=== PATIENT | male | born 1950 | race Caucasian/White ===

== ENCOUNTER 2023-12-24 11:06 | Day surgery (SDC) | payer OTHER ==
[2023-12-23 12:33] LABS: Absolute Basophils 0.1 K/uL (0-0.5); Absolute Eosinophils 0.6 K/uL (0-0.5); Absolute Lymphocytes (CBC) 3.1 K/uL (0.7-4.9); Absolute Monocytes 1.2 K/uL (0.1-1.3); Absolute Neutrophil 5.1 K/uL (1.8-8.0); Basophils % 1.2 % (0-1.3); Eosinophils % 5.6 % (0-4.4); Hematocrit 46.2 % (39.6-49.0); Hemoglobin 15.6 g/dL (13.6-17.9); Lymphocytes % 30.9 % (15.3-44.8); MCH 30.5 pg (27.0-35.0); MCHC 33.7 g/dL (32.0-36.0); MCV 90.5 fL (80-100); MPV 8.2 fL (7.6-11.3); Monocytes % 12.2 % (3.3-12.3); Neutrophils % 50.1 % (41.7-73.7); Platelets 271 thou/uL (152-406); RBC Red Blood Cell Count 5.11 M/uL (4.33-5.43); Red Cell Distribution Width 13.5 % (12.1-15.2)
[2023-12-23 12:48] LABS: Anion Gap 7.8 mEq/L (5.0-15.0); Potassium 3.8 mEq/L (3.5-5.1)
[2023-12-23 12:53] LABS: PTT, Activated Partial Thromb 40.8 SECONDS (24.3-36.9); Protime INR 1.07
[2023-12-24] MEDS: NA CHLORIDE 0.9% 500 ML ONE (11:27)
[2023-12-24] MEDS ORDERED: LIDOCAINE 1% 20 ML MDV ONE (12:04)
[2023-12-24] MEDS ORDERED: HEPA 1000U/500MLS 2,000 UNIT/1,000 ML BAG IV ONE (12:04)
[2023-12-24] MEDS ORDERED: HEPARIN 10,000 UNIT/10 ML VIAL IV ONE (12:04)
[2023-12-24] MEDS ORDERED: CLOPIDOGREL 75 MG TABLET ONE (12:05)
[2023-12-24] MEDS ORDERED: TICAGRELOR 90 MG TABLET PO ONE (12:05)
[2023-12-24] MEDS ORDERED: ASPIRIN 325 MG TAB ONE (12:05)
[2023-12-24] MEDS ORDERED: ATROPINE SULF 1 MG/10 ML SYR IV ONE (12:05)
[2023-12-24] MEDS ORDERED: MIDAZOLAM HCL 2 MG/2 ML INJ ONE (12:06)
[2023-12-24] MEDS ORDERED: FENTANYL CITR 100 MCG/2 ML ONE (12:06)
[2023-12-24 16:22] VITALS: TEMP 97
[2023-12-24 17:05] VITALS: BP 113/80; O2SAT 98
--- NOTE | 2023-12-25 15:28 | OP ---
Date of Procedure: 12/24/2023 Surgeon: TYSON ROLDAN Procedures Performed: 1.Selective coronary angiogram with bypass graft study. 2.Left heart catheterization. 3.PCI of severe proximal to mid RCA stenosis. I used 4.0 x 38 mm Synergy drug-eluting stent and the n overlapped proximally by another stent 4.0 x 60 mm. Indication: Unstable angina, abnormal stress test. Access: Right common femoral artery 6-Austrian closed with the 6-Austrian Angio-Seal. Complications: None. Bleeding: Less than 50 mL. Anesthesia: Total sedation time was 1 hour and 10 minutes. Description Of Procedure: After risks, benefits, and alternatives were explained, the patient agreed to procedure and signed informed consent. The patient was brought into cardiac [facility], prepped and draped in usual sterile fashion. Then, I accessed right common femoral artery us ing micropuncture kit and the ultrasound guidance, placed 6-Austrian [place] sheath and took 6-Austrian JL4 catheter into aortic root over a J-wire, engaged the left main, took standard views and then I ex changed for 6-Austrian JR4 catheter and over the wire across the aortic valve, measured the LVEDP. Pul lback did not record any gradient. Then I engaged the RCA, took standard views and then the SVG nandini t to OM1 and took standard views and then the same catheter was used to engage the RAMOS and took cherelle dard views and then gave systemic heparin to assure ACT level above 250, and I exchanged for 6-Austrian JR4 guide that was advanced over the J-wire into the aortic root, engaged the RCA, took Runthrough w graham into the RCA, placed it distally and then using a 4.0 balloon Compliant, lesions were pre-dilated and with the help of the GuideLiner, I was able to deliver a 4.0 x 38 mm Synergy drug-eluting stent in the mid segment to the proximal segment and then added another 4.0 x [address] drug-eluting st ent to overlap with the first one and final angiographic results were satisfactory and the wire was r emoved. Final angiogram was satisfactory. Then, I removed the guide and the sheath, and 6-Austrian An gianfranco-Seal was used for closure with good hemostasis. Findings: 1.Left main is normal. 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 Bypass Graft Study: 1.RAMOS is patent, but at the touchdown, there is very tight stenosis about 80%. 2.Patent SVG graft to OM. 3.Occluded SVG graft to RCA. Conclusion: 1.Severe multivessel seneca coronary artery disease, status post successful PCI of the RCA. 2.Severe stenosis at the distal RAMOS on the touchdown. Plan for staged PCI to be done at [place] of the distal RAMOS to LAD. SR/MODL Voice ID: [id number] Report ID: [id number]
--- NOTE | 2023-12-26 12:04 | EKG ---
Test Date: 2023-12-23 Test Time: 12:49:30 Registered Diet Technician: JOSELITO MEASUREMENT RESULTS: Intervals: Rate: 67 TN: 188 QRSD: 82 QT: 412 QTc: 435 [place]: P: 36 TN: 188 QRS: 40 T: 70 INTERPRETIVE STATEMENTS: Normal sinus rhythm Normal ECG No previous ECG available for comparison Electronically Signed On 12-26-23 11:55:09 CDT by Sterling Carlson
== END 2023-12-24 16:49 | disposition home or self-care (01) ==
LOC: CCL 11:06
PROVIDERS: ATTEND Internal Medicine
DX: I25.110 Atherosclerotic heart disease of native coronary artery with unstable angina pectoris (principal); I25.810 Atherosclerosis of coronary artery bypass graft(s) without angina pectoris; I25.82 Chronic total occlusion of coronary artery; I65.23 Occlusion and stenosis of bilateral carotid arteries; I10 Essential (primary) hypertension; E78.5 Hyperlipidemia, unspecified; F17.210 Nicotine dependence, cigarettes, uncomplicated; Z79.82 Long term (current) use of aspirin; Z79.899 Other long term (current) drug therapy; Z88.0 Allergy status to penicillin
CPT/HCPCS: 93005; 85025; 80048; 36415; 85610; 85347; 85730; 93458; 76937; C1893; C1760; Q9967; G0269; C1725; C1887; C9600; J2001; J2250; J3010; J7040; 93459; 99152; 99153; J0461